=== PATIENT | female | born 1990 | race Asian ===

== ENCOUNTER 2023-11-07 09:24 | Emergency (ER) | payer SELFPAY ==
[~2023-11-07] VITALS: Ht 160 cm; Wt 64.9 kg
[2023-11-07 09:44] VITALS: BP_SYST 138; PULSE 83; RESP 15; TEMP 98.6; O2SAT 98
[2023-11-07 10:25] LABS: BASOPHILS # (AUTO) 0.1 K/uL (0.0-0.2); BASOPHILS % (AUTO) 0.7 % (0.0-2.0); EOSINOPHILS # (AUTO) 0.1 K/uL (0.0-0.4); EOSINOPHILS % (AUTO) 1.1 % (0.0-4.0); HEMATOCRIT 43.9 % (36-48); HEMOGLOBIN 14.9 g/dL (12.0-16.0); LYMPHOCYTES # (AUTO) 2.4 K/uL (1.0-5.5); LYMPHOCYTES % (AUTO) 25.5 % (20.5-51.5); MEAN CORPUSCULAR HEMOGLOBIN 32 pg (27-31); MEAN CORPUSCULAR HGB CONC 34 % (32-36); MEAN CORPUSCULAR VOLUME 95 fL (79.0-98.0); MONOCYTES # (AUTO) 0.6 K/uL (0.0-1.0); MONOCYTES % (AUTO) 6.3 % (1.7-9.3); NEUTROPHILS # (AUTO) 6.1 K/uL (1.8-7.7); NEUTROPHILS % (AUTO) 66.4 % (40.0-70.0); PLATELET COUNT (AUTO) 310 K/uL (130-430); RED BLOOD CELL COUNT(AUTO) 4.64 MIL/uL (4.2-6.2); RED CELL DISTRIBUTION WIDTH 13.9 % (9.0-15.0); WHITE BLOOD COUNT (AUTO) 9.2 K/uL (4.8-10.8)
[2023-11-07 10:45] LABS: PROTHROMBIN TIME 10.2 SECS (9.5-12.5)
[2023-11-07 10:55] LABS: ANION GAP 10 (5-15); CARBON DIOXIDE 25 mmol/L (23-29); CHLORIDE 103 mmol/L (98-107); CREATININE 0.84 mg/dL (0.55-1.30); GFR AFRICAN AMERICAN 100 mL/min (>90); GLUCOSE 102 mg/dL (74-106); SODIUM SERUM 138 mmol/L (136-145); UREA NITROGEN, BLOOD 9 mg/dL (8-21)
[2023-11-07 10:56] LABS: GFR NON AFRICAN-AMERICAN 83 mL/min (>90); POTASSIUM 4.2 mmol/L (3.5-5.1)
[2023-11-07 12:05] VITALS: BP_SYST 104; PULSE 84; RESP 16; TEMP 98.6; O2SAT 98
== END 2023-11-07 12:06 | disposition home or self-care (01) ==
LOC: SED 09:24
DX: R20.2 Paresthesia of skin (principal); R53.1 Weakness
CPT/HCPCS: 36415; 70450-TC; 71045; 72125-TC; 80048; 81025; 83605; 84484; 85025; 85610; 85730; 93005; 99285